=== PATIENT | female | born 1995 | race Two or more races ===

== ENCOUNTER 2017-03-14 18:33 | Emergency (ER) | payer MEDICAID ==
[~2017-03-14] VITALS: Ht 152.4 cm; Wt 59.0 kg
[2017-03-14 19:19] VITALS: BP 132/67
== END 2017-03-14 20:08 | disposition home or self-care (01) ==
LOC: ER 18:35
DX: S19.9XXA Unspecified injury of neck, initial encounter (principal); V43.52XA Car driver injured in collision with other type car in traffic accident, initial encounter; Y93.89 Activity, other specified; Y92.488 Other paved roadways as the place of occurrence of the external cause; Y99.8 Other external cause status
CPT/HCPCS: 99283; A4606; Z7610